=== PATIENT | female | born 1955 | race Two or more races ===

== ENCOUNTER 2025-03-15 20:08 | Inpatient (IN) | payer MEDICARE, OTHER ==
[~2025-03-15] VITALS: Ht 149.9 cm; Wt 68.5 kg
--- NOTE | 2025-03-15 20:41 | ECG ---
[facility] Test Date: 2025-03-15 Test Time: 20:39:39 Pat Name: DEX SINCLAIR Department: ED Room: 0270T Gender: F Transportation Sales Consultant: HALEY : 1955 Requested By: MARGIE BUTTERFIELD Order Number: [id number] Reading MD: Emil Byran Measurements Intervals [place] Rate: 95 P: 55 OR: 141 QRS: 63 QRSD: 84 T: 56 QT: 353 QTc: 444 Interpretive Statements Sinus rhythm Electronically Signed On 03-16-2025 13:19:51 PDT by Emil Bryan Please click the below link to view image of tracing.
[2025-03-15] MEDS: IPRATROPIUM BROM 0.5 MG/2.5ML INH SOL NEB ONE (21:00)
[2025-03-15] MEDS: ALBUTEROL SULF 2.5 MG/0.5ML(0.5%) NEB SOLN NEB ONE (21:00)
[2025-03-15 21:41] LABS: Hematocrit 40.3 % (36.0-46.0); Hemoglobin 13.5 g/dL (12.2-16.2); Mean Corpuscular Hemoglobin 29.2 pg (28.0-32.0); Mean Corpuscular Hgb Conc. 33.5 g/dL (32.0-36.0); Platelet Count (auto) 205 10^3/uL (140-450); Red Blood Cells 4.64 10^6/uL (4.0-5.20); Red Cell Distribution Width 13.3 % (11.8-14.3); White Blood Cell 9.2 10^3/uL (4.4-10.8)
[2025-03-15 21:48] LABS: Band Neutrophils % (manual) 0; Basophils % (manual) 0 (0.0-2.0); Blast Cells 0; Metamyelocytes % 0; Myelocytes % 0; Promyelocytes % 0; Reactive Lymphocytes 0
[2025-03-15 21:54] LABS: Alanine Aminotransferase 16 U/L (7-40); Albumin 4.1 g/dL (3.2-4.8); Anion Gap 7 (5-15); Aspartate Aminotransferase 13 U/L (13-40); BUN/Creatinine Ratio 10.1 (10.0-20.0); Calcium 9.7 mg/dL (8.7-10.4); Carbon Dioxide 29 mmol/L (20-31); Chloride 104 mmol/L (98-107); Potassium 3.8 mmol/L (3.5-5.1); Sodium 140 mmol/L (136-145); Total Protein 7.3 g/dL (5.7-8.2)
--- NOTE | 2025-03-15 21:54 | DVH ---
CHEST RADIOGRAPH Indication: sob cough Technique: Single frontal view of the chest was obtained Comparison: None FINDINGS: Lines and Tubes: None Lungs: Clear Pleura: No effusion. No pneumothorax. Cardiomediastinal contours: Unremarkable Bones: Unremarkable IMPRESSION: Clear lungs.
[2025-03-15 21:55] LABS: Alkaline Phosphatase 213 U/L (46-116); Bilirubin, Total 0.3 mg/dL (0.2-1.0); Blood Urea Nitrogen 7 mg/dL (9-23); Glucose 108 mg/dL (74-106)
[2025-03-15 22:17] LABS: Eosinophils % (manual) 28 (0-7); Lymphocytes % (manual) 17 (10.0-50.0); Monocytes % (manual) 5 (0-12); Platelet Estimate Adequate
[2025-03-15 22:18] LABS: Anisocytosis Slight
[2025-03-15] MEDS: methylPREDNISolone SOD SUCC 125 MG/2 ML VL IV ONE (23:35)
[2025-03-15 23:39] VITALS: PULSE 99; RESP 20; O2SAT 97
[2025-03-16] VITALS (19 sets, daily range): BP systolic 118–155; BP diastolic 62–84; PULSE 81–111; RESP 14–20; TEMP 97.9–98.4; O2SAT 94–100
[2025-03-16] MEDS: IPRATROPIUM BROM 0.5 MG/2.5ML INH SOL NEB ONE (01:15)
[2025-03-16] MEDS: ALBUTEROL SULF 2.5 MG/0.5ML(0.5%) NEB SOLN NEB ONE (01:15)
--- NOTE | 2025-03-16 01:25 | ED.PDOC ---
SOB-HPI HPI Comments 69-year-old female with a history of asthma referred by urgent care for evaluation of wheezing, productive cough and difficulty breathing for the past 3 days. Patient states she has been using her inhaler and home nebulizer without relief. She is not on home oxygen. Patient also notes leg swelling, which is new. She denies any fever, chest pain, abdominal pain or other symptoms. Chief Complaint: Shortness of Breath Time Seen by MD: 20:23 Primary Care Provider: Dr. Peace Mode of Arrival: Ambulatory Past Medical History PAST MEDICAL HISTORY: Asthma Past Medical History (Other): Diverticulosis Surgical History: Surgical History (Other): Surgery for ruptured diverticulum, ostomy with reversal HOME CARE PROVIDER History: No Pertinent HOME CARE PROVIDER History Family History Family History: Reviewed,noncontributory to illness Social History Smoker: Non-Smoker Alcohol: Denies ETOH Use Drugs: Denies Drug Use Lives In: Home All Other Systems: Reviewed and Negative (Comprehensive systems review obtained and negative except for what is stated in the HPI.) Physical Exam General Appearance: Mild Distress HEENT: Other (Pupils and face symmetric. Moist mucous membranes.) Neck: Full Range of Motion, Normal Inspection Respiratory: Decreased Breath Sounds, No Accessory Muscle Use, No Respiratory Distress, Wheezing Cardiovascular: No JVD, Regular Rate/Rhythm Breast Exam: Deferred Gastrointestinal: Non Tender, Soft Genitalia: Deferred Pelvic: Deferred Rectal: Deferred Extremities: Normal range of motion, Non-tender, Pedal edema Neurologic: Alert (Oriented x4), Normal Affect, Normal Mood, Other (Moves all extremities) Cerebellar Function: NOT DONE Reflexes: NOT DONE Skin: Dry, Normal Color, Warm Lymphatic: NOT DONE EKG EKG : Comments Sinus rhythm, rate 95, normal intervals, normal axis, normal QRS, no ST/T changes. Was a procedure done? Was a procedure done?: No Differential Dx Differential Diagnosis: Asthma, Bronchitis, CHF, COPD, Dysrhythmia, Hyperventilation, Panic Attack, Pneumonia, Pulmonary Embolism, Respiratory Distress, URI X-Ray, Labs, Meds, VS Vital Signs Date Time Temp Pulse Resp B/P (MAP) Pulse Ox O2 Delivery O2 Flow Rate FiO2 03/15/25 23:39 98.4 99 20 143/98 (113) 97 98.4 03/15/25 23:39 99 20 97 Nasal Cannula* 2 28 03/15/25 20:57 18 99 Nasal Cannula* 2 28 03/15/25 20:39 95 03/15/25 20:08 18 98 Nasal Cannula* 3 32 03/15/25 20:08 98.6 103 18 155/127 (136) 98 98.6 Lab Test 03/15/25 21:56 03/15/25 21:00 Range/Units Troponin I High Sensitivity 5 5 </=34 ng/L White Blood Count 9.2 4.4-10.8 10^3/uL Red Blood Count 4.64 4.0-5.20 10^6/uL Hemoglobin 13.5 12.2-16.2 g/dL Hematocrit 40.3 36.0-46.0 % Mean Corpuscular Volume 87.0 80.0-100.0 fL Mean Corpuscular Hemoglobin 29.2 28.0-32.0 pg Mean Corpuscular Hemoglobin Concent 33.5 32.0-36.0 g/dL Red Cell Distribution Width 13.3 11.8-14.3 % Platelet Count 205 140-450 10^3/uL Mean Platelet Volume 8.4 6.9-10.8 fL Neutrophils (%) (Auto) 37.0-80.0 % Lymphocytes (%) (Auto) 10.0-50.0 % Monocytes (%) (Auto) 0.0-12.0 % Eosinophils (%) (Auto) 0.0-7.0 % Basophils (%) (Auto) 0.0-2.0 % Neutrophils # (Auto) 1.6-8.6 10 ^3/uL Lymphocytes # (Auto) 0.4-5.4 10 ^3/uL Monocytes # (Auto) 0-1.3 10 ^3/uL Differential Total Cells Counted 100.0 100 Neutrophils % (Manual) 50 37.0-80.0 Band Neutrophils % (Manual) 0 Lymphocytes % (Manual) 17 10.0-50.0 Monocytes % (Manual) 5 0-12 Eosinophils % (Manual) 28 H 0-7 Basophils % (Manual) 0 0.0-2.0 Metamyelocytes % (manual) 0 Myelocytes % (Manual) 0 Promyelocytes % (Manual) 0 Blast Cells % (Manual) 0 Reactive Lymphocytes 0 Platelet Estimate Adequate Anisocytosis (manual) Slight Sodium Level 140 136-145 mmol/L Potassium Level 3.8 3.5-5.1 mmol/L Chloride Level 104 98-107 mmol/L Carbon Dioxide Level 29 20-31 mmol/L Anion Gap 7 5-15 Blood Urea Nitrogen 7 L 9-23 mg/dL Creatinine 0.69 0.550-1.02 mg/dL Glomerular Filtration Rate Calc 94 >90 mL/min BUN/Creatinine Ratio 10.1 10.0-20.0 Serum Glucose 108 H 74-106 mg/dL Lactic Acid Level 0.7 0.4-2.0 mmol/L Calcium Level 9.7 8.7-10.4 mg/dL Total Bilirubin 0.3 0.2-1.0 mg/dL Aspartate Amino Transferase (AST) 13 13-40 U/L Alanine Aminotransferase (ALT) 16 7-40 U/L Alkaline Phosphatase 213 H 46-116 U/L B-Type Natriuretic Peptide 40.05 0-100 pg/mL Total Protein 7.3 5.7-8.2 g/dL Albumin 4.1 3.2-4.8 g/dL Current Medications Medications (Trade) Dose Ordered Sig/Otto Route Start Time Stop Time Status Last Admin Albuterol (Ventolin Medneb) 5 mg ONCE ONCE NEB 03/15/25 20:45 03/15/25 20:46 DC 03/15/25 21:00 Ipratropium [place] (Atrovent Medneb) 0.5 mg ONCE ONCE NEB 03/15/25 20:45 03/15/25 20:46 DC 03/15/25 21:00 Methylprednisolone Sodium Succinate (Solu Medrol) 125 mg ONCE ONCE IV 03/15/25 20:45 03/15/25 20:46 DC 03/15/25 23:35 PROCEDURE(s): CXRP - CHEST PORTABLE REASON: sob cough ORDER NUMBER(s): [id number], ACCESSION NUMBER(s): [id number] CHEST RADIOGRAPH Indication: sob cough Technique: Single frontal view of the chest was obtained Comparison: None FINDINGS: Lines and Tubes: None Lungs: Clear Pleura: No effusion. No pneumothorax. Cardiomediastinal contours: Unremarkable Bones: Unremarkable IMPRESSION: Clear lungs. X-Ray, Labs, Meds, VS Comment 69-year-old female with a history of asthma and diverticular disease brought in by family, referred by urgent care for evaluation of wheezing and difficulty breathing for the last 3 days Vitals remarkable for oxygen saturation 87% on room air, BP 155/127, heart rate 103 Exam remarkable for wheezing and diminished breath sounds Rhythm strip independently interpreted by me: Sinus rhythm, rate 95, no ectopy. Chest x-ray unremarkable CBC, CMP, BNP and troponin unremarkable, influenza and COVID tests pending Patient treated with the following in the ED: Albuterol 5 mg/Atrovent 0.5 mg nebulized x2, Solu-Medrol 125 mg IV On re-evaluation, patient's symptoms have somewhat improved. She is not in respiratory distress, however still hypoxic on room air. Plan is to admit the patient for respiratory support and pulmonology evaluation. Time of 1ST Reevaluation: 01:24 Reevaluation 1ST: Improved Patient Education/Counseling: Diagnosis, Treatment Family Education/Counseling: No Family Present Departure 1 Departure Time of Disposition: 01:24 Impression: Primary Impression: Acute respiratory failure Qualified Codes: J96.01 - Acute respiratory failure with hypoxia Additional Impression: Asthma exacerbation Qualified Codes: J45.901 - Unspecified asthma with (acute) exacerbation Disposition: ADMITTED INPATIENT Admit to: Tele Condition: Guarded Critical Care Note Critical Care Time?: No Stability Stability form required: No Heart Score Heart Score: Heart Score Response (Comments) Value History N/A 0 EKG N/A 0 Age N/A 0 Risk Factors N/A 0 Troponin N/A 0 Total 0 MARGIE KELLER MD Mar 16, 2025 01:25
--- NOTE | 2025-03-16 01:44 | DVHHPRES ---
History of Present Illness Resident Creating Document: HASEEB ESPINOZA RESIDENT History of Present Illness Ms Wall year old female with past medical history of asthma on inhalers and nebulized treatments, GERD on omeprazole presented to the ER with a chief complaint of shortness of breath and productive cough for the past 2 days. She reports shortness of breaths on exertion which started suddenly 2 days back, associated with cough which is productive with phlegm which is clear in color. Patient denies fever, chills, nausea, vomiting, myalgia generalized weakness. She tried using her nebulized albuterol treatment and formoterol inhaler which did not help her. Reports sleeping on a recliner and lower extremity swelling. In the ER patient was saturating at 88% therefore she was started on 2 L oxygen supplementation. Patient is tachycardic. Past medical history: Asthma, GERD Social history: Lives with partner and kids, Denies smoking, quit drinking 15 years back, denies illicit drug use Home medications: Nebulized albuterol, formoterol inhaler b.i.d., omeprazole PCP: Dr Peace Patient seen and examined in the ER. Has bilateral expiratory wheezing and tachycardia. Smoke: No ALCOHOL: none Drugs: None Lives: with Family Review of Systems Respiratory: Cough, Shortness of breath, SOB with excertion, Pleuritic Pain, Sputum, Wheezing Allergies: Coded Allergies: Erythromycin (Verified Allergy, Unknown, 03/15/25) Meperidine (Verified Allergy, Unknown, 03/15/25) Exam Vital Signs Vital Signs Date Time Temp Pulse Resp B/P (MAP) Pulse Ox O2 Delivery O2 Flow Rate FiO2 03/15/25 23:39 98.4 99 20 143/98 (113) 97 98.4 03/15/25 23:39 Nasal Cannula* 2 28 Exam Patient lying in bed, in no acute distress General: Overweight, afebrile, palor, mucosae are moist Cardiovascular: Regular S1 and S2. No murmurs, gallops or rubs. No JVD elevation. Bilateral 2+ pitting edema Respiratory: Bilateral expiratory wheezing heard on auscultation, saturating 92 on 2 L oxygen. Abdomen: Soft, nontender, nondistended, normoactive bowel sounds, no rebound tenderness, no organomegaly, no masses Genitourinary: Deferred MSK/skin: Mobilizes 4 limbs. Skin is dry and warm Neurological: No motor, no sensitive deficits, normal speech. Pupils are isocoric and reactive. Psych/Mental Status: A/Ox3 Labs/Xrays Labs Test 03/16/25 01:20 03/15/25 21:56 03/15/25 21:00 Range/Units Troponin I High Sensitivity 5 </=34 ng/L White Blood Count 9.2 4.4-10.8 10^3/uL Red Blood Count 4.64 4.0-5.20 10^6/uL Hemoglobin 13.5 12.2-16.2 g/dL Hematocrit 40.3 36.0-46.0 % Mean Corpuscular Volume 87.0 80.0-100.0 fL Mean Corpuscular Hemoglobin 29.2 28.0-32.0 pg Mean Corpuscular Hemoglobin Concent 33.5 32.0-36.0 g/dL Red Cell Distribution Width 13.3 11.8-14.3 % Platelet Count 205 140-450 10^3/uL Mean Platelet Volume 8.4 6.9-10.8 fL Neutrophils (%) (Auto) 37.0-80.0 % Lymphocytes (%) (Auto) 10.0-50.0 % Monocytes (%) (Auto) 0.0-12.0 % Eosinophils (%) (Auto) 0.0-7.0 % Basophils (%) (Auto) 0.0-2.0 % Neutrophils # (Auto) 1.6-8.6 10 ^3/uL Lymphocytes # (Auto) 0.4-5.4 10 ^3/uL Monocytes # (Auto) 0-1.3 10 ^3/uL Differential Total Cells Counted 100.0 100 Neutrophils % (Manual) 50 37.0-80.0 Band Neutrophils % (Manual) 0 Lymphocytes % (Manual) 17 10.0-50.0 Monocytes % (Manual) 5 0-12 Eosinophils % (Manual) 28 H 0-7 Basophils % (Manual) 0 0.0-2.0 Metamyelocytes % (manual) 0 Myelocytes % (Manual) 0 Promyelocytes % (Manual) 0 Blast Cells % (Manual) 0 Reactive Lymphocytes 0 Platelet Estimate Adequate Anisocytosis (manual) Slight Sodium Level 140 136-145 mmol/L Potassium Level 3.8 3.5-5.1 mmol/L Chloride Level 104 98-107 mmol/L Carbon Dioxide Level 29 20-31 mmol/L Anion Gap 7 5-15 Blood Urea Nitrogen 7 L 9-23 mg/dL Creatinine 0.69 0.550-1.02 mg/dL Glomerular Filtration Rate Calc 94 >90 mL/min BUN/Creatinine Ratio 10.1 10.0-20.0 Serum Glucose 108 H 74-106 mg/dL Lactic Acid Level 0.7 0.4-2.0 mmol/L Calcium Level 9.7 8.7-10.4 mg/dL Total Bilirubin 0.3 0.2-1.0 mg/dL Aspartate Amino Transferase (AST) 13 13-40 U/L Alanine Aminotransferase (ALT) 16 7-40 U/L Alkaline Phosphatase 213 H 46-116 U/L B-Type Natriuretic Peptide 40.05 0-100 pg/mL Total Protein 7.3 5.7-8.2 g/dL Albumin 4.1 3.2-4.8 g/dL Assessment/Plan Assessment/Plan Acute hypoxic respiratory failure secondary to asthma exacerbation Rule out pulmonary embolism hx of asthma vit d deficiency Plan; Methylprednisolone 125 mg IV push administered by ER Methylprednisolone 40 mg IV daily Nebulized treatment with albuterol and ipratropium q.4 hourly Oxygen supplementation with 2 L NC, wean off Follow up with Lower extremity Doppler and magnesium levels Diet: Regular diet Pantoprazole 40 mg p.o. daily Lovenox 40 mg sc daily Plan discussed with patient which all questions have been answered Goals of care discussed for more than 28 minutes, full code status Case discussed with Dr. Gomez Plan discussed with: Patient, Spouse Date of Service: Mar 16, 2025 Billing Provider: IQRA GOMEZ MD Common Visit Codes: 66077-RBDVEHC INP/OBS CARE (HIGH) HASEEB ESPINOZA RESIDENT Mar 16, 2025 01:44
[2025-03-16] MEDS: ALBUTEROL SULF 2.5 MG/0.5ML(0.5%) NEB SOLN NEB SCH (02:00)
[2025-03-16] MEDS: IPRATROPIUM BROM 0.5 MG/2.5ML INH SOL NEB SCH (02:00)
[2025-03-16] MEDS ORDERED: HYDROcodone-ACET 5/325MG TAB PO PRN (02:00)
[2025-03-16 02:01] LABS: COVID19 ANTIGEN SOFIA FIA NEGATIVE (NEGATIVE); Rapid Influenza A Negative (Negative); Rapid Influenza B Negative (Negative)
--- NOTE | 2025-03-16 02:41 | DVH ---
Clinical History: dvt Comparison: None Technique: Duplex Doppler evaluation of the deep venous system of the right or left lower extremity from the com mon femoral vein to the popliteal vein including color Doppler and spectral/pulsed waveform analysis was performed. Findings: The common femoral vein demonstrates appropriate compressibility and waveform variability. There is compressibility/patency of the great saphenous vein at the proximal thigh. The femoral vein demonstrates appropriate compressibility and waveform variability. The deep femoral vein demonstrates appropriate compressibility and waveform variability. The popliteal vein demonstrates appropriate compressibility and waveform variability. There is normal compressibility at the tibioperoneal trunk. Impression: 1. No right or left deep venous thrombosis. 2. If clinical concern/symptoms persist or worsen, short-interval follow-up study is suggested.
[2025-03-16] MEDS: PANTOPRAZOLE 40 MG TAB PO SCH (04:02)
[2025-03-16] MEDS: MAGNESIUM SULFATE 1GM/100ML 100 ML IV ONE (04:09)
[2025-03-16 05:19] LABS: Amphetamine Screen, Urine Pos (NEGATIVE); Barbiturate Scree,Urine Neg (NEGATIVE); Benzodiazephine Screen, Urine Neg (NEGATIVE); Cannabinoid Screen, Urine Neg (NEGATIVE); Cocaine Screen, Urine Neg (NEGATIVE); Opiate Scree,Urine Neg (NEGATIVE); Phencyclidine Screen, Urine Neg (NEGATIVE)
[2025-03-16 05:21] LABS: Urine Bacteria FEW /hpf (None Seen); Urine Blood Negative /uL (Negative); Urine Clarity Clear (Clear); Urine Color Colorless (Yellow); Urine Protein, UAD Negative (Negative); Urine Specific Gravity 1.008 (1.001-1.035); Urine Squamous Epithelial Cell FEW /hpf (<5); Urine Urobilinogen Normal (Negative); Urine WBC 2 /HPF (0-5)
[2025-03-16] MEDS ORDERED: ALBU4TAB PO (05:39)
[2025-03-16] MEDS ORDERED: OMEP-434 PO (05:39)
[2025-03-16 06:10] LABS: Basophils # (auto) 0 10 ^3/uL (0-0.2); Basophils % (auto) 0.1 % (0.0-2.0); Eosinophils # (auto) 0 10 ^3/uL (0-0.8); Eosinophils % (auto) 0.6 % (0.0-7.0); Hematocrit 40.1 % (36.0-46.0); Hemoglobin 13.5 g/dL (12.2-16.2); Lymphocytes # (auto) 0.7 10 ^3/uL (0.4-5.4); Lymphocytes % (auto) 10.8 % (10.0-50.0); Mean Corpuscular Hgb Conc. 33.6 g/dL (32.0-36.0); Mean Corpuscular Volume 86.3 fL (80.0-100.0); Monocytes # (auto) 0.1 10 ^3/uL (0-1.3); Neutrophils # (auto) 5.8 10 ^3/uL (1.6-8.6); Neutrophils % (auto) 87.5 % (37.0-80.0); Platelet Count (auto) 194 10^3/uL (140-450); Red Blood Cells 4.65 10^6/uL (4.0-5.20); Red Cell Distribution Width 13.4 % (11.8-14.3); White Blood Cell 6.6 10^3/uL (4.4-10.8)
[2025-03-16 06:25] LABS: INR 1.01 (0.9-1.15); Partial Thromboplastin Time 31.6 SEC (24.5-34.5); Prothrombin Time 10.7 sec (9.3-11.8)
[2025-03-16 06:29] LABS: Alanine Aminotransferase 16 U/L (7-40); Alkaline Phosphatase 215 U/L (46-116); Anion Gap 10 (5-15); Aspartate Aminotransferase 11 U/L (13-40); BUN/Creatinine Ratio 10.9 (10.0-20.0); Blood Urea Nitrogen 7 mg/dL (9-23); Calcium 9.6 mg/dL (8.7-10.4); Carbon Dioxide 25 mmol/L (20-31); Chloride 103 mmol/L (98-107); Glucose 185 mg/dL (74-106); Magnesium 2.4 mg/dL (1.6-2.6); Potassium 3.8 mmol/L (3.5-5.1); Sodium 138 mmol/L (136-145); Total Protein 7.5 g/dL (5.7-8.2)
[2025-03-16 06:30] LABS: Bilirubin, Total 0.4 mg/dL (0.2-1.0)
[2025-03-16 06:32] LABS: Albumin 4.3 g/dL (3.2-4.8)
[2025-03-16 07:02] LABS: Erythrocyte Sedimentation Rate 23 mm/hr (0-20)
[2025-03-16] MEDS: ENOXAPARIN SOD 40 MG/0.4 ML SYRINGE SC SCH (08:57)
[2025-03-16] MEDS: methylPREDNISolone SOD SUCC 40 MG/ML VL IV ONE ×2 (09:32→20:16)
[2025-03-16] MEDS ORDERED: AZITHROMYCIN 500MG/ 250ML 250 ML IV ONE (15:15)
[2025-03-16] MEDS: DOXYCYCLINE 100MG/100ML 100 ML IV SCH (15:45)
--- NOTE | 2025-03-16 16:10 | DVHSR ---
APPROVED REPORT EXAM: Two-dimensional and M-mode echocardiogram with Doppler and color Doppler. Blood Pressure: 127/64 mmHg INDICATION SOB, B/L Leg edema RISK FACTORS Height: 4'11, Weight: 140 DIMENSIONS LVDd3.9 (3.8-5.7cm)LA (2D)3.6 (1.9-4.0cm)Aortic Root2.8 (2.0-3.7cm) LVDs2.5 (2.5-4.0cm)LA (MM) (1.9-4.0cm)Aortic Cusp Exc1.7 (1.5-2.0cm) EF (%) 60.0 (55-70%)Rt. Atrium3.0 (1.9-4.0cm)Asc. Aorta cm IVSd0.8 (0.7-1.1cm)RV (D)3.4 (1.8-2.4cm) PWd1.0 (0.7-1.1cm) Mitral Valve MitralMitral Stenosis E wave0.94m/sMV Mean GR.mmHg A wave1.05m/sMV Peak GR.97mmHg E/A ratio0.92D MVAcm2 DECEL [id number] 1/2 Tim[place] Aortic Valve Aortic ValveAortic Stenosis V11.09m/Harpreet Mean GR.5mmHg V21.65m/Harpreet Peak GR.11mmHg LVOT Diameter2.0 (1.8-2.4cm)Doppler AVA2.07cm2 Pulmonic Valve V21.24m/s Tricuspid Valve TR Velocity2.52m/s [id number] Other Information Quality : Technically LimitedRhythm : Conclusion LVEF normal at 55-60% RV function normal
--- NOTE | 2025-03-16 16:14 | DVHPNRES ---
Progress Note Date Seen: Mar 16, 2025 Resident Creating Document: ANGELA LANDEROS RESIDENT Medical Necessity Reason Pt with a Central, PICC or Fol: No Subjective Review of Systems HPI- Ms Wall year old female with past medical history of asthma on inhalers and nebulized treatments, GERD on omeprazole presented to the ER with a chief complaint of shortness of breath and productive cough for the past 2 days. She reports shortness of breaths on exertion which started suddenly 2 days back, associated with cough which is productive with phlegm which is clear in color. Patient denies fever, chills, nausea, vomiting, myalgia generalized weakness. She tried using her nebulized albuterol treatment and formoterol inhaler which did not help her. Reports sleeping on a recliner and lower extremity swelling. In the ER patient was saturating at 88% therefore she was started on 2 L oxygen supplementation. Patient is tachycardic. Initial lab workup revealed UDS positive for a mphetamine, urinalysis revealed leukocyte esterase 2+, WBC 2, bacteria few. Patient tested negative for influenza and COVID-19. STUDY OF LOWER EXTREMITY NEGATIVE FOR DVT. Past medical history: Asthma, GERD Social history: Lives with partner and kids, Denies smoking, quit drinking 15 years back, denies illicit drug use Home medications: Nebulized albuterol, formoterol inhaler b.i.d., omeprazole Allergy- azithromycin, maybe Personal History/ Social History- Patient was seen today at the bedside. Patient Cardiovascular- deny acute chest pain or palpitation Gastrointestinal- denies any rectal bleeding, nausea or vomiting Musculoskeletal-denies acute joint swelling or tenderness or redness Neurological- denies acute dysarthria, dysphagia, change in vision Psychiatry- denies depression or SI or HI Skin- denies acute rash or purpura Patient was seen today for clinical evaluation. Labs and chart reviewed. Patient was still wheezing, on auscultation bilateral wheezing 2+. Ordered ceftriaxone and doxycycline for possible pneumonia. Objective vital signs Vital Sign Date Time Temp Pulse Resp B/P (MAP) Pulse Ox O2 Delivery O2 Flow Rate FiO2 03/16/25 13:54 104 18 99 03/16/25 13:47 Nasal Cannula* 1 24 03/16/25 13:04 98.0 144/71 (95) 98.0 Total Intake and Output 03/15/25 03/15/25 03/16/25 15:00 23:00 07:00 Intake Total 50 ml Balance 50 ml medications Current Medications Medications Dose Ordered Sig/Otto Route Start Time Stop Time Status Last Admin Dose Admin Albuterol 2.5 mg Q4HR NEB 03/16/25 02:00 03/16/25 13:44 2.5 MG Ipratropium [place] 0.5 mg Q4HR NEB 03/16/25 02:00 03/16/25 13:44 0.5 MG Enoxaparin Sodium 40 mg DAILY SC 03/16/25 10:00 03/16/25 08:57 40 MG Pantoprazole Sodium 40 mg DAILY@0600 PO 03/16/25 06:00 03/16/25 04:02 40 MG Acetaminophen 500 mg Q4HPRN PRN PO 03/16/25 02:00 Acetaminophen/ Hydrocodone Bitart 1 tab Q4HPRN PRN PO 03/16/25 02:00 Ergocalciferol 50,000 unit Q7D PO 03/16/25 07:15 Ceftriaxone Sodium 50 ml @ 100 mls/hr DAILY@09 IV 03/17/25 09:00 Azithromycin 250 ml @ 125 mls/hr DAILY IV 03/17/25 10:00 Future Hold Doxycycline Hyclate 100 ml @ 50 mls/hr Q12H IV 03/16/25 15:45 UNV Examination General examination- , alert, oriented HEENT- PEERLA, no acute nasal discharge Cardiovascular- S1-S2 audible, rate and rhythm regular, no murmur Respiratory-bilateral wheezing++ Gastrointestinal-nontender, bowel sound+. Nondistended Musculoskeletal-no acute joint swelling or tenderness or redness Lower extremity- no leg edema Neurological- cranial nerves intact, no acute dysarthria or dysphagia Psychiatry- denies depression or SI or HI Skin- no acute rash or purpura laboratory and microbiology Laboratory Tests 03/16/25 05:26 Test 03/16/25 05:26 Range/Units Serum Glucose 185 H 74-106 mg/dL Problem List/Assessment/Plan Problem List/Assessment/Plan Assessment and plan Sepsis likely due to pneumonia Acute hypoxic respiratory failure likely due to pneumonia Acute exacerbation of asthma Acute cystitis without end-organ damage Vitamin-D deficiency Substance abuse amphetamine Plan Continue ceftriaxone and doxycycline as prescribed Continue nebulization as prescribed Continue methylprednisolone as prescribed Continue ergo cholecalciferol as prescribed Continue other treatment as prescribed Goals of care, Code status ; discussed with >15 minutes PUD prophylaxis: Pantoprazole DVT prophylaxis: Lovenox Plan discussed with Dr. Vieira , nursing staff, Total time spent on patient evaluation, chart review, assessment and plan, discussion discussion >35 minutes Plan discussed with: Patient, Other (RN) My Orders My Orders Orders - ANGELA LANDEROS Procedure Category Date Status Time Ceftriaxone 1gm/50ml PHA 03/17/25 In Process D5w (Rocephin) 09:00 Azithromycin 500mg/ PHA 03/17/25 In Process 250ml (Zithromax 50 10:00 Doxycycline PHA 03/16/25 Logged 100mg/100ml 15:45 Doxycycline PHA 03/16/25 Logged 100mg/100ml 15:45 Date of Service: Mar 16, 2025 Billing Provider: PRISCILLA DENNEY MD Common Visit Codes: [id number] INP/OBS CARE(HIGH) ANGELA LANDEROS Mar 16, 2025 16:14 PRISCILLA DENNEY MD March 26, 2025 21:31
[2025-03-16] MEDS: cefTRIAXone 1GM/50ML D5W 50 ML IV ONE (17:03)
[2025-03-16] MEDS: ERGOCALCIFEROL 50,000 UNIT(1.25MG) CAP PO SCH (17:03)
[2025-03-16] MEDS: DOXYCYCLINE 100MG/100ML 100 ML IV ONE (17:59)
[2025-03-17] VITALS (18 sets, daily range): BP systolic 109–147; BP diastolic 54–75; PULSE 86–109; RESP 16–19; TEMP 98–98.7; O2SAT 91–100
[2025-03-17 07:20] LABS: Anion Gap 10 (5-15); Carbon Dioxide 26 mmol/L (20-31); Chloride 104 mmol/L (98-107); Potassium 4.2 mmol/L (3.5-5.1); Sodium 140 mmol/L (136-145)
[2025-03-17 07:22] LABS: Calcium 9.5 mg/dL (8.7-10.4)
[2025-03-17 07:26] LABS: BUN/Creatinine Ratio 18.6 (10.0-20.0); Blood Urea Nitrogen 13 mg/dL (9-23)
[2025-03-17 07:28] LABS: Basophils # (auto) 0 10 ^3/uL (0-0.2); Basophils % (auto) 0.1 % (0.0-2.0); Eosinophils # (auto) 0 10 ^3/uL (0-0.8); Eosinophils % (auto) 0.1 % (0.0-7.0); Hematocrit 39.4 % (36.0-46.0); Hemoglobin 13.3 g/dL (12.2-16.2); Lymphocytes % (auto) 7.1 % (10.0-50.0); Mean Corpuscular Hemoglobin 29.1 pg (28.0-32.0); Mean Corpuscular Hgb Conc. 33.7 g/dL (32.0-36.0); Mean Corpuscular Volume 86.5 fL (80.0-100.0); Monocytes # (auto) 0.8 10 ^3/uL (0-1.3); Monocytes % (auto) 5.6 % (0.0-12.0); Neutrophils # (auto) 12.3 10 ^3/uL (1.6-8.6); Neutrophils % (auto) 87.1 % (37.0-80.0); Platelet Count (auto) 229 10^3/uL (140-450); Red Blood Cells 4.55 10^6/uL (4.0-5.20); Red Cell Distribution Width 13.4 % (11.8-14.3); White Blood Cell 14.1 10^3/uL (4.4-10.8)
[2025-03-17 07:34] LABS: Glucose 144 mg/dL (74-106)
[2025-03-17] MEDS: methylPREDNISolone SOD SUCC 40 MG/ML VL IV SCH ×2 (08:36→22:20)
[2025-03-17] MEDS: cefTRIAXone 1GM/50ML D5W 50 ML IV SCH (08:37)
[2025-03-17] MEDS ORDERED: AZITHROMYCIN 500MG/ 250ML 250 ML IV SCH (10:00)
--- NOTE | 2025-03-17 12:43 | DVHPNRES ---
Progress Note Date Seen: Mar 17, 2025 Resident Creating Document: ANGELA LANDEROS RESIDENT Medical Necessity Reason Pt with a Central, PICC or Fol: No Subjective Review of Systems HPI- Ms Wall year old female with past medical history of asthma on inhalers and nebulized treatments, GERD on omeprazole presented to the ER with a chief complaint of shortness of breath and productive cough for the past 2 days. She reports shortness of breaths on exertion which started suddenly 2 days back, associated with cough which is productive with phlegm which is clear in color. Patient denies fever, chills, nausea, vomiting, myalgia generalized weakness. She tried using her nebulized albuterol treatment and formoterol inhaler which did not help her.Reports sleeping on a recliner and lower extremity swelling. In the ER patient was saturating at 88% therefore she was started on 2 L oxygen supplementation. Patient is tachycardic. Initial lab workup revealed UDS positive for amphetamine, urinalysis revealed leukocyte esterase 2+, WBC 2, bacteria few. Patient tested negative for influenza and COVID-19. Doppler study of the lower extremity negative for DVT. Echo 2D revealed LVEF 55%. RVSP 31 mm of mercury. UDS positive for amphetamine. Past medical history: Asthma, GERD Social history: Lives with partner and kids, Denies smoking, quit drinking 15 years back, denies illicit drug use Home medications: Nebulized albuterol, formoterol inhaler b.i.d., omeprazole Allergy- azithromycin, maybe Personal History/ Social History- Patient was seen today at the bedside. Patient Cardiovascular- deny acute chest pain or palpitation Gastrointestinal- denies any rectal bleeding, nausea or vomiting Musculoskeletal-denies acute joint swelling or tenderness or redness Neurological- denies acute dysarthria, dysphagia, change in vision Psychiatry- denies depression or SI or HI Skin- denies acute rash or purpura Patient was seen today for clinical evaluation. Labs and chart reviewed. Patient was still wheezing, on auscultation bilateral wheezing 2+. Echo 2D revealed LVEF 55%. RVSP 31 mm of mercury. UDS positive for amphetamine. Objective vital signs Vital Sign Date Time Temp Pulse Resp B/P (MAP) Pulse Ox O2 Delivery O2 Flow Rate FiO2 03/17/25 09:58 89 18 98 03/17/25 09:50 Nasal Cannula 2.0 03/17/25 09:50 28 03/17/25 08:31 98.1 129/71 (90) 98.1 Total Intake and Output 03/16/25 03/16/25 03/17/25 15:00 23:00 07:00 Intake Total 725 ml 750 ml Balance 725 ml 750 ml medications Current Medications Medications Dose Ordered Sig/Otto Route Start Time Stop Time Status Last Admin Dose Admin Albuterol 2.5 mg Q4HR NEB 03/16/25 02:00 03/17/25 09:50 2.5 MG Ipratropium [place] 0.5 mg Q4HR NEB 03/16/25 02:00 03/17/25 09:50 0.5 MG Enoxaparin Sodium 40 mg DAILY SC 03/16/25 10:00 03/17/25 08:36 40 MG Pantoprazole Sodium 40 mg DAILY@0600 PO 03/16/25 06:00 03/17/25 05:39 40 MG Acetaminophen 500 mg Q4HPRN PRN PO 03/16/25 02:00 Acetaminophen/ Hydrocodone Bitart 1 tab Q4HPRN PRN PO 03/16/25 02:00 Ergocalciferol 50,000 unit Q7D PO 03/16/25 07:15 03/16/25 17:03 50,000 UNIT Ceftriaxone Sodium 50 ml @ 100 mls/hr DAILY@09 IV 03/17/25 09:00 03/17/25 08:37 100 MLS/HR Azithromycin 250 ml @ 125 mls/hr DAILY IV 03/17/25 10:00 Cancel Doxycycline Hyclate 100 ml @ 50 mls/hr Q12H IV 03/16/25 15:45 03/17/25 02:51 50 MLS/HR Methylprednisolone Sodium Succinate 40 mg BID IV 03/17/25 10:00 03/17/25 08:36 40 MG Examination General examination- , alert, oriented HEENT- PEERLA, no acute nasal discharge Cardiovascular- S1-S2 audible, rate and rhythm regular, no murmur Respiratory-bilateral wheezing++ Gastrointestinal-nontender, bowel sound+. Nondistended Musculoskeletal-no acute joint swelling or tenderness or redness Lower extremity- no leg edema Neurological- cranial nerves intact, no acute dysarthria or dysphagia Psychiatry- denies depression or SI or HI Skin- no acute rash or purpura laboratory and microbiology Laboratory Tests 03/17/25 06:03 Test 03/17/25 06:03 Range/Units Serum Glucose 144 H 74-106 mg/dL Microbiology Date/Time Source Procedure Growth Status 03/15/25 21:00 Blood Blood Culture - Preliminary NO GROWTH AFTER 24 HOURS OF INCUBATION. Resulted Problem List/Assessment/Plan Problem List/Assessment/Plan Assessment and plan Sepsis likely due to pneumonia Acute hypoxic respiratory failure likely due to pneumonia Acute exacerbation of asthma Acute cystitis without end-organ damage Vitamin-D deficiency UDS positive for amphetamine Blood culture no growth UDS positive for amphetamine Echo 2D revealed LVEF 55%. RVSP 31 mm of mercury. Plan Continue ceftriaxone and doxycycline as prescribed Continue nebulization as prescribed Continue methylprednisolone as prescribed Continue ergo cholecalciferol as prescribed Continue other treatment as prescribed Goals of care, Code status ; discussed with >15 minutes PUD prophylaxis: Pantoprazole DVT prophylaxis: Lovenox Plan discussed with Dr. Vieira , nursing staff, Total time spent on patient evaluation, chart review, assessment and plan, discussion discussion >35 minutes Plan discussed with: Patient, Other (RN) My Orders My Orders Orders - ANGELA LANDEROS Procedure Category Date Status Time Ceftriaxone 1gm/50ml PHA 03/17/25 In Process D5w (Rocephin) 09:00 Doxycycline PHA 03/16/25 In Process 100mg/100ml 15:45 Urine Bacterial ALYSIA 03/16/25 In Process Culture 19:24 Methylprednisolone PHA 03/17/25 In Process Sod Succ (Solu Medrol 10:00 Communication Order ORDERS 03/16/25 Transmitted 19:59 Date of Service: Mar 17, 2025 Billing Provider: PRISCILLA DENNEY MD Common Visit Codes: [id number] INP/OBS CARE(HIGH) ANGELA LANDEROS Mar 17, 2025 12:43 PRISCILLA DENNEY MD March 26, 2025 21:12
[2025-03-17] MEDS: ACETAMINOPHEN 500 MG TAB or CAP PO PRN (13:40)
[2025-03-17] MEDS ORDERED: IPRATROPIUM BROM 0.5 MG/2.5ML INH SOL NEB PRN (14:15)
[2025-03-17] MEDS ORDERED: ALBUTEROL SULF 2.5 MG/0.5ML(0.5%) NEB SOLN NEB PRN (14:15)
[2025-03-18] VITALS (18 sets, daily range): BP systolic 123–155; BP diastolic 66–84; PULSE 82–111; RESP 18–22; TEMP 98.2–98.6; O2SAT 92–100
[2025-03-18 06:56] LABS: Anion Gap 8 (5-15); Carbon Dioxide 29 mmol/L (20-31); Chloride 105 mmol/L (98-107); Potassium 3.8 mmol/L (3.5-5.1); Sodium 142 mmol/L (136-145)
[2025-03-18 07:02] LABS: BUN/Creatinine Ratio 22.1 (10.0-20.0); Blood Urea Nitrogen 15 mg/dL (9-23); Glucose 98 mg/dL (74-106)
[2025-03-18 07:03] LABS: Basophils # (auto) 0 10 ^3/uL (0-0.2); Basophils % (auto) 0.3 % (0.0-2.0); Eosinophils # (auto) 0.1 10 ^3/uL (0-0.8); Eosinophils % (auto) 0.7 % (0.0-7.0); Hematocrit 40.1 % (36.0-46.0); Hemoglobin 13.2 g/dL (12.2-16.2); Lymphocytes # (auto) 1.8 10 ^3/uL (0.4-5.4); Lymphocytes % (auto) 18.7 % (10.0-50.0); Mean Corpuscular Volume 87.8 fL (80.0-100.0); Monocytes # (auto) 0.8 10 ^3/uL (0-1.3); Monocytes % (auto) 7.8 % (0.0-12.0); Neutrophils % (auto) 72.5 % (37.0-80.0); Nucleated Red Blood Cells % 0.1 %; Platelet Count (auto) 207 10^3/uL (140-450); Red Blood Cells 4.57 10^6/uL (4.0-5.20); Red Cell Distribution Width 13.8 % (11.8-14.3); White Blood Cell 9.7 10^3/uL (4.4-10.8)
--- NOTE | 2025-03-18 13:41 | DVH ---
EXAM: XY CHEST PORTABLE Indication: SOB Technique: Single frontal view of the chest was obtained Comparison: XY CHEST PORTABLE on DOS: 03/15/25 FINDINGS: Lines and Tubes: None Lungs: No focal consolidation. Pleura: No effusion. No pneumothorax. Cardiomediastinal contours: Unremarkable Bones: No acute osseous abnormality. IMPRESSION: No acute cardiopulmonary disease.
--- NOTE | 2025-03-18 15:42 | DVHPNRES ---
Progress Note Date Seen: Mar 18, 2025 Resident Creating Document: ANGELA LANDEROS RESIDENT Medical Necessity Reason Pt with a Central, PICC or Fol: No Subjective Review of Systems HPI- Ms Wall year old female with past medical history of asthma on inhalers and nebulized treatments, GERD on omeprazole presented to the ER with a chief complaint of shortness of breath and productive cough for the past 2 days. She reports shortness of breaths on exertion which started suddenly 2 days back, associated with cough which is productive with phlegm which is clear in color. Patient denies fever, chills, nausea, vomiting, myalgia generalized weakness. She tried using her nebulized albuterol treatment and formoterol inhaler which did not help her.Reports sleeping on a recliner and lower extremity swelling. In the ER patient was saturating at 88% therefore she was started on 2 L oxygen supplementation. Patient is tachycardic. Initial lab workup revealed UDS positive for amphetamine, urinalysis revealed leukocyte esterase 2+, WBC 2, bacteria few. Patient tested negative for influenza and COVID-19. Doppler study of the lower extremity negative for DVT. Echo 2D revealed LVEF 55%. RVSP 31 mm of mercury. UDS positive for amphetamine. Past medical history: Asthma, GERD Social history: Lives with partner and kids, Denies smoking, quit drinking 15 years back, denies illicit drug use Home medications: Nebulized albuterol, formoterol inhaler b.i.d., omeprazole Allergy- azithromycin, maybe Personal History/ Social History- Patient was seen today at the bedside. Patient Cardiovascular- deny acute chest pain or palpitation Gastrointestinal- denies any rectal bleeding, nausea or vomiting Musculoskeletal-denies acute joint swelling or tenderness or redness Neurological- denies acute dysarthria, dysphagia, change in vision Psychiatry- denies depression or SI or HI Skin- denies acute rash or purpura Patient was seen today for clinical evaluation. Labs and chart reviewed. Patient was still wheezing, on auscultation bilateral wheezing 2+. Ordered Pulmonary consult for further evaluation and care. Objective vital signs Vital Sign Date Time Temp Pulse Resp B/P (MAP) Pulse Ox O2 Delivery O2 Flow Rate FiO2 03/18/25 13:49 87 22 98 03/18/25 13:41 Nasal Cannula 1.0 03/18/25 13:41 24 03/18/25 13:00 98.4 152/84 (106) 98.4 Total Intake and Output 03/17/25 03/17/25 03/18/25 15:00 23:00 07:00 Intake Total 50 ml 1500 ml 920 ml Balance 50 ml 1500 ml 920 ml medications Current Medications Medications Dose Ordered Sig/Otto Route Start Time Stop Time Status Last Admin Dose Admin Albuterol 2.5 mg Q4HR NEB 03/16/25 02:00 03/18/25 13:41 2.5 MG Ipratropium [place] 0.5 mg Q4HR NEB 03/16/25 02:00 03/18/25 13:41 0.5 MG Enoxaparin Sodium 40 mg DAILY SC 03/16/25 10:00 03/17/25 08:36 40 MG Pantoprazole Sodium 40 mg DAILY@0600 PO 03/16/25 06:00 03/18/25 05:54 40 MG Acetaminophen 500 mg Q4HPRN PRN PO 03/16/25 02:00 03/18/25 06:05 500 MG Acetaminophen/ Hydrocodone Bitart 1 tab Q4HPRN PRN PO 03/16/25 02:00 Ergocalciferol 50,000 unit Q7D PO 03/16/25 07:15 03/16/25 17:03 50,000 UNIT Ceftriaxone Sodium 50 ml @ 100 mls/hr DAILY@09 IV 03/17/25 09:00 03/17/25 08:37 100 MLS/HR Azithromycin 250 ml @ 125 mls/hr DAILY IV 03/17/25 10:00 Cancel Doxycycline Hyclate 100 ml @ 50 mls/hr Q12H IV 03/16/25 15:45 03/18/25 02:47 50 MLS/HR Methylprednisolone Sodium Succinate 40 mg Q8HR IV 03/17/25 22:00 03/18/25 05:53 40 MG Albuterol 1.25 mg Q4HPRN PRN NEB 03/17/25 14:15 Ipratropium [place] 0.5 mg Q4HPRN PRN NEB 03/17/25 14:15 Examination General examination- , alert, oriented HEENT- PEERLA, no acute nasal discharge Cardiovascular- S1-S2 audible, rate and rhythm regular, no murmur Respiratory-bilateral wheezing++ Gastrointestinal-nontender, bowel sound+. Nondistended Musculoskeletal-no acute joint swelling or tenderness or redness Lower extremity- no leg edema Neurological- cranial nerves intact, no acute dysarthria or dysphagia Psychiatry- denies depression or SI or HI Skin- no acute rash or purpura laboratory and microbiology Laboratory Tests 03/18/25 04:40 Test 03/18/25 04:40 Range/Units Serum Glucose 98 74-106 mg/dL Microbiology Date/Time Source Procedure Growth Status 03/16/25 04:28 Voided Urine Urine Culture - Preliminary Resulted 03/15/25 21:00 Blood Blood Culture - Preliminary NO GROWTH AFTER 48 HOURS OF INCUBATION. Resulted Problem List/Assessment/Plan Problem List/Assessment/Plan Assessment and plan-patient was wheezing has improved but still wheezing. O rdered Pulmonary consult for further evaluation and care. Sepsis likely due to pneumonia Acute hypoxic respiratory failure likely due to pneumonia Acute exacerbation of asthma Acute cystitis without end-organ damage Vitamin-D deficiency UDS positive for amphetamine Blood culture no growth UDS positive for amphetamine Echo 2D revealed LVEF 55%. RVSP 31 mm of mercury. Plan Continue ceftriaxone and doxycycline as prescribed Continue nebulization as prescribed Continue methylprednisolone as prescribed Continue ergo cholecalciferol as prescribed Continue other treatment as prescribed Goals of care, Code status ; discussed with >15 minutes PUD prophylaxis: Pantoprazole DVT prophylaxis: Lovenox Plan discussed with Dr. Vieira , nursing staff, Total time spent on patient evaluation, chart review, assessment and plan, discussion discussion >35 minutes Plan discussed with: Patient, Other (RN) My Orders My Orders Orders - ANGELA LANDEROS RESIDENT Procedure Category Date Status Time Chest Portable XY 03/18/25 Resulted 11:44 *Consult CONS 03/18/25 Transmitted / 11:47 ANGELA LANDEROS RESIDENT Mar 18, 2025 15:42
--- NOTE | 2025-03-18 18:02 | DVHDSRES ---
Discharge Summary Date of Admission Resident Creating Document: ANGELA LANDEROS RESIDENT Mar 16, 2025 at 01:43 Date of Discharge: Mar 18, 2025 Admitting Diagnosis Acute hypoxic respiratory failure Labs/Diagnostic Data: Laboratory Results Test 03/18/25 04:40 03/16/25 05:26 03/16/25 04:28 03/16/25 01:20 White Blood Count 9.7 10^3/uL (4.4-10.8) Red Blood Count 4.57 10^6/uL (4.0-5.20) Hemoglobin 13.2 g/dL (12.2-16.2) Hematocrit 40.1 % (36.0-46.0) Mean Corpuscular Volume 87.8 fL (80.0-100.0) Mean Corpuscular Hemoglobin 29.0 pg (28.0-32.0) Mean Corpuscular Hemoglobin Concent 33.0 g/dL (32.0-36.0) Red Cell Distribution Width 13.8 % (11.8-14.3) Platelet Count 207 10^3/uL (140-450) Mean Platelet Volume 9.2 fL (6.9-10.8) Neutrophils (%) (Auto) 72.5 % (37.0-80.0) Lymphocytes (%) (Auto) 18.7 % (10.0-50.0) Monocytes (%) (Auto) 7.8 % (0.0-12.0) Eosinophils (%) (Auto) 0.7 % (0.0-7.0) Basophils (%) (Auto) 0.3 % (0.0-2.0) Neutrophils # (Auto) 7.0 10 ^3/uL (1.6-8.6) Lymphocytes # (Auto) 1.8 10 ^3/uL (0.4-5.4) Monocytes # (Auto) 0.8 10 ^3/uL (0-1.3) Eosinophils # (Auto) 0.1 10 ^3/uL (0-0.8) Basophils # (Auto) 0 10 ^3/uL (0-0.2) Nucleated Red Blood Cells 0.1 % Sodium Level 142 mmol/L (136-145) Potassium Level 3.8 mmol/L (3.5-5.1) Chloride Level 105 mmol/L (98-107) Carbon Dioxide Level 29 mmol/L (20-31) Anion Gap 8 (5-15) Blood Urea Nitrogen 15 mg/dL (9-23) Creatinine 0.68 mg/dL (0.550-1.02) Glomerular Filtration Rate Calc 94 mL/min (>90) BUN/Creatinine Ratio 22.1 (10.0-20.0) Serum Glucose 98 mg/dL (74-106) Calcium Level 9.0 mg/dL (8.7-10.4) Erythrocyte Sedimentation Rate 23 mm/hr (0-20) Prothrombin Time 10.7 sec (9.3-11.8) Prothrombin Time INR 1.01 (0.9-1.15) Activated Partial Thromboplast Time 31.6 SEC (24.5-34.5) Hemoglobin A1c 5.7 % A1C (<5.7) Magnesium Level 2.4 mg/dL (1.6-2.6) Total Bilirubin 0.4 mg/dL (0.2-1.0) Aspartate Amino Transferase (AST) 11 U/L (13-40) Alanine Aminotransferase (ALT) 16 U/L (7-40) Alkaline Phosphatase 215 U/L (46-116) Total Protein 7.5 g/dL (5.7-8.2) Albumin 4.3 g/dL (3.2-4.8) Vitamin B12 Level 446 pg/mL (211-911) Vitamin D 25-Hydroxy 20.3 ng/mL (30.0-100) Thyroid Stimulating Hormone (TSH) 0.26 uIU/mL (0.55-4.78) Urine Color Colorless (Yellow) Urine Clarity Clear (Clear) Urine pH 6.0 (5.0-9.0) Urine Specific [place] 1.008 (1.001-1.035) Urine Protein Negative (Negative) Urine Ketones Negative (Negative) Urine Blood Negative /uL (Negative) Urine Nitrite Negative (Negative) Urine Bilirubin Negative (Negative) Urine Urobilinogen Normal mg/dL (Negative) Urine Leukocyte Esterase 2+ /uL (Negative) Urine RBC 1 /hpf (0 - 4) Urine Microscopic WBC 2 /HPF (0-5) Urine Squamous Epithelial Cells Few /hpf (<5) Urine Bacteria Few /hpf (None Seen) Urine Glucose Normal mg/dL (Normal) Urine Opiates Screen Neg (NEGATIVE) Urine Fentanyl Screen Neg (NEGATIVE) Urine Barbiturates Screen Neg (NEGATIVE) Urine Phencyclidine Screen Neg (NEGATIVE) Urine Amphetamines Screen Pos (NEGATIVE) Urine Benzodiazepines Screen Neg (NEGATIVE) Urine Cocaine Screen Neg (NEGATIVE) Urine Cannabinoids Screen Neg (NEGATIVE) Influenza Type A Antigen Negative (Negative) Influenza Type B Antigen Negative (Negative) SARS-CoV-2 Antigen (Rapid) Negative (NEGATIVE) Test 03/15/25 21:56 03/15/25 21:00 Troponin I High Sensitivity 5 ng/L (</=34) Differential Total Cells Counted 100.0 (100) Neutrophils % (Manual) 50 (37.0-80.0) Band Neutrophils % (Manual) 0 Lymphocytes % (Manual) 17 (10.0-50.0) Monocytes % (Manual) 5 (0-12) Eosinophils % (Manual) 28 (0-7) Basophils % (Manual) 0 (0.0-2.0) Metamyelocytes % (manual) 0 Myelocytes % (Manual) 0 Promyelocytes % (Manual) 0 Blast Cells % (Manual) 0 Reactive Lymphocytes 0 Platelet Estimate Adequate Anisocytosis (manual) Slight Lactic Acid Level 0.7 mmol/L (0.4-2.0) B-Type Natriuretic Peptide 40.05 pg/mL (0-100) Other Laboratory Tests 03/18/25 04:40 Brief Hx & Hospital Course: HPI- Ms Wall year old female with past medical history of asthma on inhalers and nebulized treatments, GERD on omeprazole presented to the ER with a chief complaint of shortness of breath and productive cough for the past 2 days. She reports shortness of breaths on exertion which started suddenly 2 days back, associated with cough which is productive with phlegm which is clear in color. Patient denies fever, chills, nausea, vomiting, myalgia generalized weakness. She tried using her nebulized albuterol treatment and formoterol inhaler which did not help her.Reports sleeping on a recliner and lower extremity swelling. In the ER patient was saturating at 88% therefore she was started on 2 L oxygen supplementation. Patient is tachycardic. Initial lab workup revealed UDS positive for amphetamine, urinalysis revealed leukocyte esterase 2+, WBC 2, bacteria few. Patient tested negative for influenza and COVID-19. Doppler study of the lower extremity negative for DVT. Echo 2D revealed LVEF 55%. RVSP 31 mm of mercury. UDS positive for amphetamine. Hospital course- Ms Yohan year old female with past medical history of asthma on inhalers and nebulized treatments, GERD on omeprazole presented to the ER with a chief complaint of shortness of breath and productive cough for the past 2 days. She reports shortness of breaths on exertion which started suddenly 2 days back, associated with cough which is productive with phlegm which is clear in color. Patient denies fever, chills, nausea, vomiting, myalgia generalized weakness. She tried using her nebulized albuterol treatment and formoterol inhaler which did not help her.Reports sleeping on a recliner and lower extremity swelling. In the ER patient was saturating at 88% therefore she was started on 2 L oxygen supplementation. Patient is tachycardic. Initial lab workup revealed UDS positive for amphetamine, urinalysis revealed leukocyte esterase 2+, WBC 2, bacteria few. Patient tested negative for influenza and COVID-19. Doppler study of the lower extremity negative for DVT. Echo 2D revealed LVEF 55%. RVSP 31 mm of mercury. UDS positive for amphetamine. During hospitalization patient was treated with IV antibiotic and methylprednisolone IV. Patient's symptom mildly improved but still wheezing. Ordered Pulmonary consult. Patient refused care. Patient refused Pulmonary consult, also refused IV medication or to have IV line for medications. Patient was advised about the consequence of refusing treatment on health. Patient was explained her medical condition that she is not in condition to be discharged. Patient was advised that if she goes home her condition can get worse. Even after that Patient continued refusing treatment. Patient was discharged due to refusal of care. Discharged with prednisolone and doxycycline. Patient was hemodynamically stable on discharge. Assessment Sepsis likely due to pneumonia Acute hypoxic respiratory failure likely due to suspect pneumonia Suspected Acuet PNA Gram-positive versus Gram-negative Acute exacerbation of asthma Acute cystitis without end-organ damage Vitamin-D deficiency UDS positive for amphetamine Plan Continue prednisolone as prescribed Continue doxycycline as prescribed Resume other home medication Please follow up with the primary care physician in 1 week Please follow up with the offensive coordinator in 1-2 weeks Operations or Procedures [address] [address] Ph: [phone] DIAGNOSTIC IMAGING Diagnostic Imaging Report : [id number] Signed PATIENT: DEX SINCLAIRACCT: [id number] UNIT: [id number] : 1955 LOC: ER ROOM / BED: / AGE / SEX: 69 / F ADM STATUS: REG ER SERVICE 33 ORDERING PHYSICIAN: MARGIE KELLER MD PROCEDURE(s): CXRP - CHEST PORTABLE REASON: sob cough ORDER NUMBER(s): [id number], ACCESSION NUMBER(s): [id number] CHEST RADIOGRAPH Indication: sob cough Technique: Single frontal view of the chest was obtained Comparison: None FINDINGS: Lines and Tubes: None Lungs: Clear Pleura: No effusion. No pneumothorax. Cardiomediastinal contours: Unremarkable Bones: Unremarkable IMPRESSION: Clear lungs. ATED BY: POLY SALCIDO DO DICTATED DATE/TIME: 03/15/252151 SIGNED BY: POLY SALCIDO DO SIGNED DATE/TIME: 03/15/252151 CC: [place] [address] Ph: [phone] DIAGNOSTIC IMAGING Diagnostic Imaging Report : [id number] Signed PATIENT: DEX SINCLAIRACCT: [id number] UNIT: [id number] : 1955 LOC: OVERFLOW ROOM / BED: 1017-ERT / A AGE / SEX: 69 / F ADM STATUS: ADM IN SERVICE 2 ORDERING PHYSICIAN: HASEEB ESPINOZA PROCEDURE(s): BLDVT - BiLat Lower DVT REASON: ?dvt ORDER NUMBER(s): [id number], ACCESSION NUMBER(s): [id number] Clinical History: dvt Comparison: None Technique: Duplex Doppler evaluation of the deep venous system of the right or left lower extremity from the common femoral vein to the popliteal vein including color Doppler and spectral/pulsed waveform analysis was performed. Findings: The common femoral vein demonstrates appropriate compressibility and waveform variability. There is compressibility/patency of the great saphenous vein at the proximal thigh. The femoral vein demonstrates appropriate compressibility and waveform variability. The deep femoral vein demonstrates appropriate compressibility and waveform variability. The popliteal vein demonstrates appropriate compressibility and waveform variability. There is normal compressibility at the tibioperoneal trunk. Impression: 1. No right or left deep venous thrombosis. 2. If clinical concern/symptoms persist or worsen, short-interval follow-up study is suggested. ATED BY: GIORGI MOSES MD DICTATED DATE/TIME: 03/16/25237 SIGNED BY: GIORGI MOSES MD SIGNED DATE/TIME: 03/16/25237 CC: [place] [id number] Ph: [phone] DIAGNOSTIC IMAGING Diagnostic Imaging Report : [id number] Signed PATIENT: DEX SINCLAIR ACCT: [id number] UNIT: [id number] : 1955 LOC: [facility] ROOM / BED: [facility] / AGE / SEX: 69 / F ADM STATUS: ADM IN SERVICE 1144 ORDERING PHYSICIAN: ANGELA LANDEROS RESIDENT PROCEDURE(s): CXRP - CHEST PORTABLE REASON: SOB ORDER NUMBER(s): [id number], ACCESSION NUMBER(s): [id number] EXAM: XY CHEST PORTABLE Indication: SOB Technique: Single frontal view of the chest was obtained Comparison: XY CHEST PORTABLE on DOS: 03/15/25 FINDINGS: Lines and Tubes: None Lungs: No focal consolidation. Pleura: No effusion. No pneumothorax. Cardiomediastinal contours: Unremarkable Bones: No acute osseous abnormality. IMPRESSION: No acute cardiopulmonary disease. ATED BY: RONA SIERRA MD DICTATED DATE/TIME: 03/18/259 SIGNED BY: RONA SIERRA MD SIGNED DATE/TIME: 03/18/251338 CC: Condition at Discharge: Guarded Final Diagnosis/Problems List Sepsis likely due to pneumonia Acute hypoxic respiratory failure likely due to suspect pneumonia Suspected Acuet PNA Gram-positive versus Gram-negative Acute exacerbation of asthma Acute cystitis without end-organ damage Vitamin-D deficiency UDS positive for amphetamine Discharge Disposition: Home Discharge Instruct/Medications Diet: Regular Follow Up/Referral: Please follow up with the primary care physician in 1 week Please follow up with the offensive coordinator in 1-2 weeks Medications: Continue prednisolone as prescribed Continue doxycycline as prescribed Resume other home medication Please follow up with the primary care physician in 1 week Please follow up with the offensive coordinator in 1-2 weeks Discharge Statement: "Patient was advised to return to the ER or call 911 if any headaches, dizziness, shortness of breath, chest pain, abdominal pain, bleeding, fevers, or worsening of medical condition. Patient was counseled about treatment plan, medications, possible side effects, patientverbalized understanding. All questions were answered to the best of my ability. This discharge took greater then 30 minutes in planning, reviewing documentation, counseling the patient, and discussing with other team members." ASSESSMENT ASSESSMENT Assessment Date of Service: Mar 18, 2025 Billing Provider: PRISCILLA DENNEY MD Common Visit Codes: [id number] DISCH DAY >30min ANGELA LANDEROS Mar 18, 2025 18:02 PRISCILLA DENNEY MD March 26, 2025 22:24
[2025-03-18] MEDS ORDERED: PRED20TA2 PO (18:35)
[2025-03-18] MEDS ORDERED: AZIT500T66 PO (18:35)
== END 2025-03-18 20:30 | disposition home or self-care (01) | DRG 871 ==
LOC: ER 20:08 → OVERFLOW 03-16 01:43 → TELE-WESTW 03-16 10:20 → WEST WING 03-17 14:45
PROVIDERS: ADMIT Student in an Organized Health Care Education/Training Program; ATTEND Student in an Organized Health Care Education/Training Program
DX: A41.9 Sepsis, unspecified organism (principal); J15.69 Pneumonia due to other Gram-negative bacteria; J96.01 Acute respiratory failure with hypoxia; J15.9 Unspecified bacterial pneumonia; J45.901 Unspecified asthma with (acute) exacerbation; N30.00 Acute cystitis without hematuria; E55.9 Vitamin D deficiency, unspecified; Z88.1 Allergy status to other antibiotic agents; Z88.6 Allergy status to analgesic agent; Z79.899 Other long term (current) drug therapy
CPT/HCPCS: 36415; 36600; 71045; 80048; 80053; 80307; 81001; 82306; 82607; 82805; 83036; 83605; 83735; 83880; 84443; 84484; 85007; 85025; 85027; 85610; 85652; 85730; 87040; 87086; 87426; 87804; 93005; 93306; 93970; 94640; 96374; G0378